=== PATIENT | male | born 1990 | race Caucasian/White ===

== ENCOUNTER → 2025-07-26 | Outpatient (CLI) | payer OTHER, SELFPAY ==
[2025-07-26 11:09] LABS: Hematocrit 44.2 % (40-54); Hemoglobin 15.0 g/dL (13.0-16.5); Mean Corp Hgb Conc 33.9 g/dL (32-36); Mean Corpuscular Volume 89.8 fL (80-94); Mean Platelet Vol. 10.2 fl (6.2-12.0); Platelet Count 280 K/mm3 (150-450); RBC Distribution Width CV 11.9 % (11.6-14.6); RBC Distribution Width SD 38.8 fl (35.1-43.9); Red Blood Count 4.92 M/mm3 (4.6-6.2); White Blood Count 7.1 K/mm3 (4.4-11.0)
[2025-07-26 13:40] LABS: AST(SGOT) 25 U/L (<=37); Alanine Aminotransfer ALT/SGPT 42 U/L (<=46); Albumin, Serum 4.1 g/dL (3.5-5.0); Alkaline Phosphatase 68 U/L (40-129); Anion Gap 11 (5-15); BUN 15 mg/dL (4-19); BUN/Creat Ratio 20.7 RATIO (10-20); Calcium,Total 9.4 mg/dL (7.6-11.0); Carbon Dioxide 24.6 mmol/L (21.0-32.0); Chloride 104 mmol/L (98-108); Cholesterol 171 mg/dL (<=200); Globulin 2.8 g/dL (2.2-4.2); Glucose 93 mg/dL (70-99); Low Density Lipoprotein Calc. 99 mg/dL; Potassium 3.9 mmol/L (3.3-5.1); Triglycerides 105 mg/dL; Very Low Density Lipoprotein 21 mg/dL (5-40); Vitamin D,25 Hydroxy 18.7 ng/mL (30-100); cholesterol:hdl ratio screen 3.36
[2025-08-03 10:08] LABS: Testosterone, % Free 2.64 % (1.50-4.20); Testosterone, Free 8.61 ng/dL (5.00-21.00)
== END | disposition home or self-care (01) ==
LOC: MFPLAB 09:13
PROVIDERS: PCP Family Medicine; Visit Provider Family Medicine
DX: Z13.1 Encounter for screening for diabetes mellitus (principal); R53.83 Other fatigue; N62 Hypertrophy of breast; Z13.220 Encounter for screening for lipoid disorders
CPT/HCPCS: 36415; 80053; 80061; 82306; 83036; 84402; 84403; 84443; 85027